=== PATIENT | male | born 1980 | race African-American/Black ===

== ENCOUNTER 2018-06-04 22:31 | Emergency (ER) | payer BC ==
[~2018-06-04] VITALS: Ht 182.9 cm; Wt 88.5 kg
[2018-06-04] MEDS ORDERED: NEOMY/BACITRA/POLYMYXIN B OINT UD PACKET TP ONE ×3 (23:15→23:22)
[2018-06-04] MEDS ORDERED: LIDOCAINE 1%-EPI 1:100,000 20 ML VIAL TP ONE (23:15)
[2018-06-04] MEDS ORDERED: TDAP DIPH,PERTUSS,TET VAC/PF 0.5 ML DISP.SYRIN IM ONE ×2 (23:15→23:21)
[2018-06-04] MEDS ORDERED: SODIUM BICARBONATE 4.2 % (NEUT) 5 ML VIAL TP ONE (23:15)
[2018-06-04 23:38] VITALS: BP 157/75
== END 2018-06-04 23:38 | disposition home or self-care (01) ==
LOC: ER 22:33
DX: S01.81XA Laceration without foreign body of other part of head, initial encounter (principal); W22.8XXA Striking against or struck by other objects, initial encounter; Y93.89 Activity, other specified; Y92.89 Other specified places as the place of occurrence of the external cause; Y99.8 Other external cause status
CPT/HCPCS: 12011; 90471; 90715; 99283; J3490; A4217; A4663

== ENCOUNTER 2018-06-12 08:05 | Emergency (ER) | payer BC ==
[~2018-06-12] VITALS: Ht 182.9 cm; Wt 88.5 kg
--- NOTE | 2018-06-12 08:12 | NUR ---
Dr Nesbitt into remove suture at bedside
--- NOTE | 2018-06-12 08:17 | NUR ---
Patient discharged to home in stable conditon. Written and verbal after care instructions given. Patient verbalizes understanding of instructions. walked out of ER with no distress noted
== END 2018-06-12 08:19 | disposition home or self-care (01) ==
LOC: ER 08:05
DX: S01.81XD Laceration without foreign body of other part of head, subsequent encounter (principal); X58.XXXD Exposure to other specified factors, subsequent encounter
CPT/HCPCS: A4663